=== PATIENT | female | born 1990 | race Two or more races ===

== ENCOUNTER → 2019-10-19 | Outpatient (REF) | payer OTHER ==
[2019-10-19 20:34] LABS: CHLAMYDIA DNA AMPLIFICATION NEGATIVE (NEGATIVE); GC DNA AMPLIFICATION NEGATIVE (NEGATIVE)
== END ==
LOC: M SFHCLERA 13:18
PROVIDERS: ATTEND Nurse Practitioner Family
DX: R39.15 Urgency of urination (principal)

== ENCOUNTER → 2020-05-18 | Outpatient (REF) | payer OTHER ==
[2020-05-18 14:50] LABS: APPEARANCE, URINE CLEAR (CLEAR); BACTERIA, URINE AUTO NEGATIVE (NEGATIVE); BILIRUBIN, URINE AUTO NEGATIVE (NEGATIVE); BLOOD, URINE BLOOD NEGATIVE (NEGATIVE); COLOR, URINE STRAW (YELLOW); GLUCOSE, URINE (UA) AUTO NEGATIVE (NEGATIVE); KETONE, URINE AUTO NEGATIVE (NEGATIVE); LEUKOCYTE ESTERASE, URINE AUTO NEGATIVE (NEGATIVE); NITRITE, URINE AUTO NEGATIVE (NEGATIVE); PROTEIN, URINE AUTO NEGATIVE (NEGATIVE); RBC, URINE AUTO 0 /HPF (0-3); SPECIFIC GRAVITY URINE AUTO 1.003 (1.002-1.035); SQUAMOUS EPITHELIAL CELL UR AU 0 /HPF (0-6); UROBILINOGEN, URINE AUTO 0.2 mg/dL (0.0-2.0); WBC, URINE AUTO 0 /HPF (0-3)
== END ==
LOC: M SMT 13:17
PROVIDERS: ATTEND Nurse Practitioner Women's Health
DX: R30.0 Dysuria (principal)

== ENCOUNTER → 2020-05-18 | Outpatient (CLI) | payer OTHER ==
--- NOTE | 2020-05-24 08:12 | REP ---
INDICATION: N63.20 LEFT BREAST LUMP/N64.4 BREAST PAIN; N63.20 LEFT BREAST LUMP. A lubin reports a area of hardening and pain in the left breast 3 o'clock to 7 o'clock position. She reports that the same area was worked up 2 years ago. Denies a localized palpable lump. COMPARISON: Comparison mammography and sonography have been retrieved from May 13, 2018 March 20, 2019, and September 12, 2019. TECHNIQUE: Craniocaudal, mediolateral, and 3D tomography imaging was acquired. Left breast study. Targeted left breast sonography is performed. This mammogram was interpreted with the aid of an FDA-approved computer-aided detection system. FINDINGS: Breast parenchyma is again noted to be extremely dense. This pattern may inhibit the sensitivity of mammography. There is no visible mass, architectural distortion, worrisome skin change, or micro calcific grouping. The [place] volumetric breast density pattern is D. Targeted ultrasound: The inferolateral quadrant of the left breast was scanned. Heterogeneous fibroglandular background echotexture is seen. No mass, acoustic shadowing or architectural distortion is apparent. No suspicious sonographic findings. IMPRESSION: BIRADS/ACR category 1-left breast mammographic and sonographic findings. Negative findings. This patient's Tyrer-Cuzick lifetime breast cancer risk assessment score is 9.7%. RECOMMENDATION: Repeat screening mammography recommended 1 year (for women over 40). The patient letter being requested is M2 dense. <Electronically signed by Kenny Eden > 05/24/20 [id number]
== END ==
LOC: M WHC 12:56
PROVIDERS: ATTEND Surgery
DX: N63.20 Unspecified lump in the left breast, unspecified quadrant (principal); N64.4 Mastodynia
CPT/HCPCS: 76642; 77065; G0279